=== PATIENT | female | born 2000 | race Two or more races ===

== ENCOUNTER 2024-07-24 12:14 | Emergency (ER) | payer MEDICAID ==
[~2024-07-24] VITALS: Ht 162.6 cm; Wt 68.0 kg
[2024-07-24 12:24] VITALS: TEMP 97.9
[2024-07-24] MEDS ORDERED: CYCLOBENZAPRINE 10 MG TABLET ONE (12:45)
[2024-07-24] MEDS ORDERED: KETOROLAC TROMETHAMINE INJ 30 MG/ML VIAL ONE (12:45)
[2024-07-24] MEDS ORDERED: oxyCODONE/APAP (5/325 MG) 1 UDTAB TABLET ONE (12:45)
[2024-07-24] MEDS: CYCLOBENZAPRINE 10 MG TABLET PO ONE (12:51)
[2024-07-24] MEDS: oxyCODONE/APAP (5/325 MG) 1 UDTAB TABLET PO ONE (12:52)
[2024-07-24] MEDS: KETOROLAC TROMETHAMINE INJ 30 MG/ML VIAL IM ONE (12:54)
[2024-07-24] MEDS ORDERED: CYCL5TAB PO (13:19)
[2024-07-24 13:35] VITALS: BP 104/58
[2024-07-24 13:45] VITALS: O2SAT 97
== END 2024-07-24 13:55 | disposition home or self-care (01) ==
LOC: ER 12:19
DX: M54.50 Low back pain, unspecified (principal)
CPT/HCPCS: 99283; 96372; J1885